=== PATIENT | male | born 1990 | race Caucasian/White ===

== ENCOUNTER 2016-10-01 02:18 | Emergency (ER) | payer BC ==
[~2016-10-01] VITALS: Ht 167.6 cm; Wt 109.7 kg
[~2016-10-01 02:18] MED LIST: FLEXERIL10 MG PO; NAPROSYN500 MG PO; ZYRTEC10 M3 PO
[2016-10-01 02:35] LABS: HEMATOCRIT 47.2 % (38.0-50.0); MCH 30.8 PG (29.0-34.0); MCHC 35.6 G/DL (30.0-36.0); MCV 86.6 FL (86-99); MEAN PLAT.VOLUME 10.7 uM^3 (9.0-12.4); PLATELET COUNT 266 K/uL (156-360); RBC DIS.WIDTH-CV 12.5 % (11.8-14.6); RBC DIS.WIDTH-SD 38.8 % (39-53); RED BLOOD COUNT 5.45 M/uL (4.00-5.50); WHITE BLOOD COUNT 15.2 K/uL (4.1-10.2)
[2016-10-01 02:46] LABS: CHLORIDE 103 mEq/L (99-109); SODIUM 137 mEq/L (136-147)
[2016-10-01 02:48] LABS: GLUCOSE 148 mg/dL (70-99)
[2016-10-01 02:50] LABS: ANION GAP 12 MEQ/L (2-14); TOTAL BILIRUBIN 0.9 mg/dL (0.0-1.0)
[2016-10-01 02:52] LABS: ALKALINE PHOSPHATASE 48 IU/L (3-129); GFR ESTIMATE (CALCULATED) > 59 mL/min/
[2016-10-01 02:53] LABS: UREA NITROGEN (BUN) 17 mg/dL (9-23)
[2016-10-01] MEDS ORDERED: ZOFRAN4 MG PO ×2 (04:29→05:14)
[2016-10-01 05:20] VITALS: BP 129/83
== END 2016-10-01 05:20 | disposition home or self-care (01) ==
LOC: EME 02:18
DX: T62.91XA Toxic effect of unspecified noxious substance eaten as food, accidental (unintentional), initial encounter (principal); R11.2 Nausea with vomiting, unspecified; R19.7 Diarrhea, unspecified; E86.0 Dehydration
CPT/HCPCS: 80053; 81003; 85027; 99281; 99284; J1885; J2405; J7030